=== PATIENT | female | born 1980 | race Caucasian/White ===

== ENCOUNTER 2019-11-14 12:35 | Outpatient (REF) | payer OTHER, SELFPAY ==
[2019-11-15 23:59] LABS: COVID-19 RT-PCR Result NEGATIVE (Negative)
== END 2019-11-14 12:55 ==
LOC: NCHCN 12:35
PROVIDERS: PCP Family Medicine; Visit Provider Family Medicine
DX: Z20.828 Contact with and (suspected) exposure to other viral communicable diseases (principal)
CPT/HCPCS: U0003

== ENCOUNTER 2020-04-17 22:42 | Outpatient (REF) | payer OTHER, SELFPAY ==
[2020-04-20 12:41] LABS: SARS-CoV-2 RNA Not Detected (NotDetected); SARS-CoV-2 RNA Source Nasal/Nares
== END 2020-04-17 23:02 ==
LOC: NCHCN 22:42
PROVIDERS: PCP Family Medicine; Visit Provider Nurse Practitioner Family
DX: Z20.828 Contact with and (suspected) exposure to other viral communicable diseases (principal)
CPT/HCPCS: U0003

== ENCOUNTER 2020-06-15 18:51 | Outpatient (REF) | payer OTHER, SELFPAY ==
[2020-06-15 21:12] LABS: HCT 40.6 % (36.0-46.0); HGB 13.6 g/dL (11.2-15.7); MCH 31.9 pg (27.0-33.0); MCHC 33.5 % (32.0-36.0); MCV 95.1 fL (80-95); MPV 9.9 fL (8.0-11.0); Platelet Count 256 10^3/uL (130-400); RBC 4.27 10^6/uL (3.93-5.22); RDW 11.8 % (11.7-14.6); RDW-SD 41.1 fL; WBC 6.81 10^3/uL (4.4-10.8)
[2020-06-15 21:47] LABS: ALT 25 U/L (14-59); AST 12 U/L (15-37); Alkaline Phosphatase 46 U/L (46-116); Anion Gap 6.5 mmol/L (3-11); BUN 10 mg/dL (7-18); Bilirubin, Total 0.7 mg/dL (0.2-1.0); CO2 27.5 mmol/L (21.0-32.0); CREATININE 0.82 mg/dL (0.55-1.02); Calcium 8.6 mg/dL (8.5-10.1); Calculated LDL 92 mg/dL (<100); Chloride 102 mmol/L (98-107); Cholesterol 200 mg/dL (<200); Glucose 91 mg/dL (74-106); HDL Cholesterol 94 mg/dL (40-60); Potassium 3.8 mmol/L (3.5-5.1); Sodium 136 mmol/L (136-145); TSH 2.02 uIU/mL (0.36-3.74); Total Protein 6.7 g/dL (6.4-8.2); Triglyceride 72 mg/dL (<150); Vitamin B12 452 pg/mL (193-986)
== END 2020-06-15 19:11 ==
LOC: NCHCN 18:51
PROVIDERS: PCP Family Medicine; Visit Provider Nurse Practitioner Family
DX: R41.840 Attention and concentration deficit (principal); F43.23 Adjustment disorder with mixed anxiety and depressed mood
CPT/HCPCS: 80053; 80061; 85027; 82607; 84443

== ENCOUNTER 2022-04-25 12:00 | Outpatient (REF) | payer OTHER, SELFPAY ==
--- NOTE | 2022-04-25 13:15 | PAPFT_PTH ---
PATIENT: Dinorah Sullivan LOC: [facility] U#:[id number] AGE/SX: 41/F ROOM: RE04/25/[address]: Myriam George : 1980 BED: DIS: 04/25/2022 SPEC #: [id number] RECD: 04/26/22 13:02 STATUS: CLAUDIA REBertha #: [id number] ELÍAS: 04/25/22 13:[address]: Myriam Gerard DEPT: [facility] Cytology RECD BY: Luann Keyes ENTERED: 04/26/22 13:02 SP TYPE: PAPFT OTHR DR: Inga Doss Tissues: 1 - CX/ENDOCX FOR PAP SMEARS Procedures: PAP THIN PREP/[facility] Screening HPV DNA PROBE Comments: [id number]
== END 2022-04-25 12:01 | disposition home or self-care (01) ==
LOC: LBN 12:00
PROVIDERS: PCP Family Medicine; Visit Provider Nurse Practitioner Family
DX: Z12.4 Encounter for screening for malignant neoplasm of cervix (principal); Z11.51 Encounter for screening for human papillomavirus (HPV); Z00.00 Encounter for general adult medical examination without abnormal findings
CPT/HCPCS: 88142; 87624

== ENCOUNTER 2022-10-03 17:35 | Outpatient (REF) | payer BC, SELFPAY ==
[2022-10-03 21:21] LABS: HGB 14.3 g/dL (11.2-15.7); MCH 32.3 pg (27.0-33.0); MCV 95 fL (80-95); MPV 9.7 fL (8.0-11.0); Platelet Count 236 10^3/uL (130-400); RBC 4.43 10^6/uL (3.93-5.22); RDW-SD 42.2 fL; WBC 7.99 10^3/uL (4.4-10.8)
[2022-10-03 21:44] LABS: TSH 2.32 uIU/mL (0.36-3.74)
[2022-10-04 13:41] LABS: Chlamydia Result Negative (Negative); GC Result Negative (Negative)
== END 2022-10-03 17:36 | disposition home or self-care (01) ==
LOC: NCHCN 17:35
PROVIDERS: PCP Family Medicine; Visit Provider Nurse Practitioner Family
DX: Z11.3 Encounter for screening for infections with a predominantly sexual mode of transmission (principal); N93.8 Other specified abnormal uterine and vaginal bleeding; N92.5 Other specified irregular menstruation
CPT/HCPCS: 85027; 87491; 87591; 84443

== ENCOUNTER 2025-03-12 14:07 | Outpatient (REF) | payer OTHER, SELFPAY ==
[2025-03-12 20:48] LABS: HCT 38.4 % (36.0-46.0); HGB 13.1 g/dL (11.2-15.7); MCH 31.8 pg (27.0-33.0); MCHC 34.1 % (32.0-36.0); MCV 93 fL (80-95); MPV 9.3 fL (8.0-11.0); Platelet Count 246 10^3/uL (130-400); RBC 4.12 10^6/uL (3.93-5.22); RDW 12.1 % (11.7-14.6); RDW-SD 41.1 fL; WBC 7.79 10^3/uL (4.4-10.8)
[2025-03-12 20:59] LABS: Anion Gap 9.8 mmol/L (3-11); BUN 7 mg/dL (7-18); CO2 24.2 mmol/L (21.0-32.0); Calcium 8.5 mg/dL (8.5-10.1); Calculated LDL 74 mg/dL (<100); Chloride 105 mmol/L (98-107); Cholesterol 191 mg/dL (<200); Estimated GFR 92.54 (mL/min/1.73m2); Glucose 110 mg/dL (74-106); HDL Cholesterol 102 mg/dL (>or=50); Potassium 3.5 mmol/L (3.5-5.1); Sodium 139 mmol/L (136-145); Triglyceride 77 mg/dL (<150)
[2025-03-12 21:03] LABS: Hemoglobin A1C 5.1 % (<5.7)
== END 2025-03-12 14:08 | disposition home or self-care (01) ==
LOC: NCHCN 14:07
PROVIDERS: PCP Family Medicine; Visit Provider Nurse Practitioner Family
DX: Z13.220 Encounter for screening for lipoid disorders (principal); Z13.1 Encounter for screening for diabetes mellitus; Z13.0 Encounter for screening for diseases of the blood and blood-forming organs and certain disorders involving the immune mechanism; Z13.6 Encounter for screening for cardiovascular disorders
CPT/HCPCS: 80048; 80061; 85027; 83036